=== PATIENT | female | born 1975 | race Caucasian/White ===

== ENCOUNTER 2020-01-15 23:11 | Emergency (ER) | payer BC, MEDICAID ==
[~2020-01-15 23:11] MED LIST: NORCO, ANEXSIA 5/325MG TABLET (HYDROcodone/ACETAMINOPHEN) ONE
[2020-01-16] MEDS ORDERED: NORCO, ANEXSIA 5/325MG TABLET (HYDROcodone/ACETAMINOPHEN) As Ordered ONE (00:18)
== END 2020-01-16 01:50 | disposition home or self-care (01) ==
LOC: M ED 23:11
DX: S30.0XXA Contusion of lower back and pelvis, initial encounter (principal); W10.9XXA Fall (on) (from) unspecified stairs and steps, initial encounter; Y92.830 Public park as the place of occurrence of the external cause; Y93.9 Activity, unspecified; Y99.9 Unspecified external cause status; M35.00 Sjogren syndrome, unspecified; M79.7 Fibromyalgia; D69.6 Thrombocytopenia, unspecified; Z79.899 Other long term (current) drug therapy